=== PATIENT | male | born 1990 | race Asian ===

== ENCOUNTER 2022-06-16 15:09 | Outpatient (CLI) | payer BC ==
[~2022-06-16 15:09] MED LIST: Magnevist 469MG/ML 20 ML VIAL ONE
== END 2022-06-16 15:10 | disposition home or self-care (01) ==
LOC: CSHMRI 15:09
PROVIDERS: ATTEND Otolaryngology
DX: H93.11 Tinnitus, right ear (principal)
CPT/HCPCS: 70553; A9579